=== PATIENT | male | born 1990 | race Caucasian/White ===

== ENCOUNTER 2023-05-28 18:20 | Observation (INO) | payer BC, OTHER ==
[2023-05-28] MEDS ORDERED: PANTOPRAZOLE SODIUM 40 MG/100 ML BAG IVPB ONE (19:36)
[2023-05-28] MEDS: PANTOPRAZOLE SODIUM 40 MG VIAL IVPUSH ONE (19:55)
[2023-05-28 19:57] LABS: BASO % 1.2 % (0-2.0); EOS % 0.3 % (0-4.5); HEMATOCRIT 39.1 % (35.4-49); HEMOGLOBIN 12.5 GM/dL (11.7-16.9); LYMPH % 27.6 % (8-40); MCH 22.6 pg (25.7-33.7); MCHC 31.9 g/dl (32.0-35.9); MEAN CELL VOLUME 70.7 fl (80-96); MEAN PLT VOLUME 8.9 fl (7.5-11.1); MONO % 8.3 % (3.8-10.2); NEUT % 62.6 % (42.8-82.8); PLATELET COUNT 302 10^3/uL (134-434); RBC 5.52 M/mm3 (4.00-5.60); RDW 16.7 % (11.9-15.9)
[2023-05-28 20:06] LABS: INR 0.97 (0.83-1.09); PROTHROMBIN TIME (PATIENT) 11.3 SEC (9.7-13.0)
[2023-05-28 20:08] LABS: ACTIVATED PTT 31.1 SECONDS (25.2-36.5)
[2023-05-28 20:20] LABS: CALCIUM 9.3 mg/dL (8.5-10.1)
[2023-05-28 20:21] LABS: ALBUMIN 4.1 g/dl (3.4-5.0); BLOOD UREA NITROGEN 26.6 mg/dL (7-18); MAGNESIUM 2.2 mg/dL (1.8-2.4)
[2023-05-28 20:24] LABS: CREATININE 1.1 mg/dL (0.55-1.3)
[2023-05-28 20:25] LABS: BILIRUBIN,TOTAL 0.8 mg/dL (0.2-1); TOT PROT 7.5 g/dl (6.4-8.2)
[2023-05-28] MEDS: LACTATED RINGERS SOLUTION 1000 ML INFUS.BAG IV ONE (20:36)
[2023-05-28 23:57] VITALS: BMI 26.9
[2023-05-29 00:42] LABS: COCAINE, UR NEGATIVE (NEGATIVE); PHENCYCLIDINE,URINE NEGATIVE (NEGATIVE); URINE BARBITURATES NEGATIVE (NEGATIVE)
[2023-05-29 00:43] LABS: METHADONE, UR NEGATIVE (NEGATIVE); URINE BENZODIAZEPINES NEGATIVE (NEGATIVE)
[2023-05-29 00:51] LABS: OPIATES, URI NEGATIVE (NEGATIVE); URINE AMPHETAMINES NEGATIVE (NEGATIVE)
[2023-05-29] MEDS: LACTATED RINGERS SOLUTION 1,000 ML/1,000 ML INFUS.BAG IV SCH (05:32)
[2023-05-29 08:37] LABS: BASO % 0.5 % (0-2.0); EOS % 0.9 % (0-4.5); HEMATOCRIT 34.7 % (35.4-49); HEMOGLOBIN 11.1 GM/dL (11.7-16.9); LYMPH % 40.6 % (8-40); MCH 22.6 pg (25.7-33.7); MCHC 31.9 g/dl (32.0-35.9); MEAN CELL VOLUME 70.7 fl (80-96); MEAN PLT VOLUME 9.2 fl (7.5-11.1); MONO % 8.3 % (3.8-10.2); NEUT % 49.7 % (42.8-82.8); PLATELET COUNT 239 10^3/uL (134-434); RBC 4.91 M/mm3 (4.00-5.60); RDW 16.7 % (11.9-15.9); WHITE BLOOD COUNT 5.5 K/mm3 (4.0-10.0)
[2023-05-29] MEDS: PANTOPRAZOLE SODIUM 40 MG VIAL IVPUSH SCH (09:03)
[2023-05-29 09:33] LABS: CALCIUM 8.9 mg/dL (8.5-10.1)
[2023-05-29 09:34] LABS: BLOOD UREA NITROGEN 21.9 mg/dL (7-18); MAGNESIUM 2.3 mg/dL (1.8-2.4)
[2023-05-29 09:37] LABS: CREATININE 0.9 mg/dL (0.55-1.3); PHOSPHOROUS 4.1 mg/dL (2.5-4.9)
[2023-05-29 09:38] LABS: BILIRUBIN,TOTAL 0.6 mg/dL (0.2-1)
[2023-05-29 09:41] LABS: ALBUMIN 3.2 g/dl (3.4-5.0)
[2023-05-29] MEDS ORDERED: BUPRENORPHINE/NALOXONE 2 MG/0.5 MG FILM PACKET SL SCH (10:01)
[2023-05-29] MEDS: BUPRENORPHINE/NALOXONE 2 MG/0.5 MG FILM PACKET SL SCH (10:26)
[2023-05-29 10:33] LABS: IRON SERUM 115 ug/dL (50-175)
[2023-05-29 10:35] LABS: TOTAL IRON BINDING CAPACITY 260 ug/dL (250-450)
[2023-05-29] MEDS: BUPRENORPHINE/NALOXONE 4 MG/1 MG FILM PACKET SL SCH (12:09)
[2023-05-29] MEDS: QUEtiapine FUMARATE 200 MG TABLET PO SCH (21:13)
[2023-05-30 08:17] LABS: BASO % 0.6 % (0-2.0); EOS % 0.9 % (0-4.5); HEMATOCRIT 37.3 % (35.4-49); HEMOGLOBIN 11.8 GM/dL (11.7-16.9); LYMPH % 35.8 % (8-40); MCH 22.2 pg (25.7-33.7); MCHC 31.7 g/dl (32.0-35.9); MEAN CELL VOLUME 70.2 fl (80-96); MEAN PLT VOLUME 9.4 fl (7.5-11.1); MONO % 7.5 % (3.8-10.2); NEUT % 55.2 % (42.8-82.8); PLATELET COUNT 236 10^3/uL (134-434); RBC 5.31 M/mm3 (4.00-5.60); RDW 16.8 % (11.9-15.9); WHITE BLOOD COUNT 5.4 K/mm3 (4.0-10.0)
[2023-05-30 08:31] LABS: CALCIUM 9.3 mg/dL (8.5-10.1)
[2023-05-30 08:32] LABS: BLOOD UREA NITROGEN 19.5 mg/dL (7-18)
[2023-05-30 08:34] LABS: POTASSIUM 4.3 mmol/L (3.5-5.1)
[2023-05-30 08:35] LABS: CREATININE 0.9 mg/dL (0.55-1.3)
[2023-05-30 10:35] VITALS: TEMP 98
[2023-05-30 10:47] VITALS: RESP 18
[2023-05-30 10:48] VITALS: BP 115/76; PULSE 71
[2023-05-31] MEDS ORDERED: PANTOPRAZOLE 40 MG TABLET PO SCH (10:00)
== END 2023-05-30 13:03 | disposition home or self-care (01) ==
LOC: JER 18:20 → UNDOADMOB 21:34 → JERBED 21:34 → OBSVTOIN 22:50 → INTOOBSV 22:50 → JERBED 23:45 → J7W 23:45 → JERBED 05-29 13:49
PROVIDERS: ADMIT Internal Medicine; ATTEND Internal Medicine
PROC: 0DJ08ZZ Inspection of Upper Intestinal Tract, Via Natural or Artificial Opening Endoscopic (ICD-10-PCS; principal; 2023-05-29)
PROC: 3E033GC Introduction of Other Therapeutic Substance into Peripheral Vein, Percutaneous Approach (ICD-10-PCS; 2023-05-29)
PROC: 3E0337Z Introduction of Electrolytic and Water Balance Substance into Peripheral Vein, Percutaneous Approach (ICD-10-PCS; 2023-05-29)
DX: K29.70 Gastritis, unspecified, without bleeding (principal); K92.2 Gastrointestinal hemorrhage, unspecified; F11.20 Opioid dependence, uncomplicated; G47.00 Insomnia, unspecified; Z72.0 Tobacco use
CPT/HCPCS: 0241U-QW; 36415; 71045-TC-FY; 80048; 80053; 80307; 82728; 83540; 83550; 83690; 83735; 84100; 85025; 85045; 85610; 85730; 86850; 86900; 86901; 88305-TC; 93005; 93010; 96374; 99285-25; G0378